=== PATIENT | male | born 1975 | race Caucasian/White ===

== ENCOUNTER → 2016-12-26 | Outpatient (REF) | LOC: ZLAB.WCH 08:44 | DX: Z01.89 Encounter for other specified special examinations (principal) ==

== ENCOUNTER → 2022-06-20 | Outpatient (CLI) | payer OTHER | LOC: MHCPAIN 14:56 | DX: M54.6 Pain in thoracic spine (principal); M54.2 Cervicalgia; M79.18 Myalgia, other site | CPT/HCPCS: G0463 ==